=== PATIENT | female | born 1970 | race Caucasian/White ===

== ENCOUNTER → 2016-11-18 | Outpatient (CLI) | payer BC, OTHER | END | disposition home or self-care (01) | LOC: LABWHC1 09:48 | PROVIDERS: ATTEND Internal Medicine Endocrinology, Diabetes & Metabolism | DX: E04.2 Nontoxic multinodular goiter (principal) | CPT/HCPCS: 36415; 84439; 84443 ==

== ENCOUNTER → 2017-06-16 | Outpatient (CLI) | payer BC, OTHER ==
--- NOTE | 2017-06-19 11:55 | MM ---
Reason for exam: screening (asymptomatic). Last mammogram was performed 2 years and 9 months ago. History: Patient is postmenopausal and has history of other cancer at age 34. Family history of breast cancer in paternal grandmother. Physical Findings: A clinical breast exam by your physician is recommended on an annual basis and results should be correlated with mammographic findings. MG 3D Screening Mammo W/Cad Bilateral CC and MLO view(s) were taken. Prior study comparison: September 04, 2014, bilateral MG screening mammo w CAD. There are scattered fibroglandular densities. No suspicious abnormality. No significant changes when compared with prior studies. ASSESSMENT: Negative, BI-RAD 1 RECOMMENDATION: Routine screening mammogram of both breasts in 1 year.
== END | disposition home or self-care (01) ==
LOC: RADMAMWWP 15:13
PROVIDERS: ATTEND Family Medicine
DX: Z12.31 Encounter for screening mammogram for malignant neoplasm of breast (principal); Z80.3 Family history of malignant neoplasm of breast
CPT/HCPCS: 77063; 77067

== ENCOUNTER → 2017-09-04 | Outpatient (CLI) | payer BC, OTHER | END | disposition home or self-care (01) | LOC: LABWHC1 12:16 | PROVIDERS: ATTEND Nurse Practitioner Family | DX: C73 Malignant neoplasm of thyroid gland (principal) | CPT/HCPCS: 36415; 84443 ==

== ENCOUNTER → 2017-10-24 | Outpatient (CLI) | payer BC, OTHER | LOC: LABWHC1 16:35 | PROVIDERS: ATTEND Internal Medicine | DX: E03.9 Hypothyroidism, unspecified (principal) | CPT/HCPCS: 36415; 84443 ==

== ENCOUNTER → 2018-06-18 | Outpatient (CLI) | payer BC, OTHER | LOC: LABWHC1 16:30 | PROVIDERS: ATTEND Internal Medicine | DX: E20.9 Hypoparathyroidism, unspecified (principal) | CPT/HCPCS: 36415; 82310 ==

== ENCOUNTER → 2018-08-14 | Outpatient (CLI) | payer BC, OTHER ==
[2018-08-15 01:13] LABS: Vitamin D 25 Hydroxy 26.3 ng/mL (30.0-100.0)
[2018-08-15 01:26] LABS: Calcium 9.1 mg/dL (8.7-10.3)
[2018-08-15 01:59] LABS: Parathyroid Hormone Intact 6.8 pg/mL (14.0-72.0)
== END ==
LOC: LABWHC1 16:42
PROVIDERS: ATTEND Internal Medicine
DX: E89.2 Postprocedural hypoparathyroidism (principal); E89.0 Postprocedural hypothyroidism
CPT/HCPCS: 36415; 82306; 82310; 83970; 84443

== ENCOUNTER 2018-08-27 13:45 | Observation (INO) | payer BC, OTHER ==
[2018-08-27] MEDS ORDERED: MORPHINE SULFATE 2 MG/ML SYRINGE IVP STA (14:05)
[2018-08-27] MEDS ORDERED: SODIUM CHLORIDE 0.9% 500 ML 500 ML IV STA (14:05)
[2018-08-27] MEDS ORDERED: ASPIRIN 81 MG PO STA (14:05)
--- NOTE | 2018-08-27 14:12 | ED ---
General Adult HPI <AngelicaPernell - Last Filed: 08/27/18 16:21> - General Source: patient, RN notes reviewed Mode of arrival: ambulatory Limitations: no limitations <Dung Scott - Last Filed: 08/27/18 16:54> - General Chief complaint: Chest Pain Stated complaint: Chest pain Time Seen by Provider: 08/27/18 14:05 - History of Present Illness Initial comments: 48-year-old female with a past medical history of fibroids, UTI, melanoma presents to the emergency department for a chief complaint of chest pressure 3 days. Patient states she has a pressure in the center of her chest that has been intermittent over the past 3 days. Patient is not sure what makes this better or worse. She does admit that today he had some left shoulder achiness and pressure. Patient also admits to a fluttering or "gurgling" in her chest. She also admits to some nausea. She denies any abdominal pain. Patient states she has also been short of breath over the past several days. She states this is worse when she walks and better with rest. Patient denies any new back pain. Patient denies smoking history. Patient denies history of hypertension or high cholesterol. Denies history of diabetes. Patient has no other complaints at this time including abdominal pain,or vomiting, headache, or visual changes. (Dung Scott) - Related Data Home Medications Medication Instructions Recorded Confirmed Calcitriol 0.5 mcg PO BID 08/27/18 08/27/18 Calcium Carbonate [Calcium] 600 mg PO DAILY 08/27/18 08/27/18 Levothyroxine Sodium [Levoxyl] 112 mcg PO MOTUWETHFRSA 08/27/18 08/27/18 Levothyroxine Sodium [Levoxyl] 168 mcg PO SALGADO 08/27/18 08/27/18 Liothyronine Sodium [Cytomel] 5 mcg PO BID 08/27/18 08/27/18 Metaxalone [Skelaxin] 800 mg PO DAILY PRN 08/27/18 08/27/18 Zegrid 1 cap PO DAILY 08/27/18 08/27/18 Allergies Allergy/AdvReac Type Severity Reaction Status Date / Time Iodinated Contrast- Oral and Allergy Dyspnea Verified 08/27/18 14:19 IV Dye Penicillins Allergy Anaphylaxis Verified 08/27/18 14:19 Review of Systems ROS Other: All systems not noted in ROS Statement are negative. <Pernell Dominguez J - Last Filed: 08/27/18 16:21> ROS Other: All systems not noted in ROS Statement are negative. <SoniaDung P - Last Filed: 08/27/18 16:54> ROS Statement: Those systems with pertinent positive or pertinent negative responses have been documented in the HPI. Past Medical History Past Medical History: Cancer Additional Past Medical History / Comment(s): fibroids/mennorragia, uti, melanoma skin ca removed rt arm History of Any Multi-Drug Resistant Organisms: None Reported Past Surgical History: Adenoidectomy, Cholecystectomy, Hysterectomy, T onsillectomy Additional Past Surgical History / Comment(s): pt stated has 1 ovary left,sebaceous cyst lt labia, 3 d&c's, wisdom teeth extracted,melanoma, laparoscopy 1995, benign lump removed from leg, plantar fasia release inder feet, 3 eye sx for crossed eyes, thyroidectomy Past Anesthesia/Blood Transfusion Reactions: Motion Sickness, Postoperative Nausea & Vomiting (PONV) Additional Past Anesthesia/Blood Transfusion Reaction / Comment(s): clausterphobia Past Psychological History: No Psychological Hx Reported Smoking Status: Never smoker Past Alcohol Use History: None Reported Past Drug Use History: None Reported - Past Family History Mother Family Medical History: Osteoarthritis (OA) Father Family Medical History: Hypertension Additional Family Medical History / Comment(s): crohns, colitis <Dung Scott P - Last Filed: 08/27/18 16:54> General Exam Limitations: no limitations General appearance: alert, in no apparent distress Head exam: Present: atraumatic, normocephalic, normal inspection Eye exam: Present: normal appearance, PERRL, EOMI. Absent: scleral icterus, conjunctival injection, periorbital swelling ENT exam: Present: normal exam, mucous membranes moist Neck exam: Present: normal inspection, full ROM. Absent: tenderness, meningismus, lymphadenopathy Respiratory exam: Present: normal lung sounds bilaterally. Absent: respiratory distress, wheezes, rales, rhonchi, stridor Cardiovascular Exam: Present: regular rate, normal rhythm, normal heart sounds. Absent: systolic murmur, diastolic murmur, rubs, gallop, clicks GI/Abdominal exam: Present: soft, normal bowel sounds. Absent: distended, tenderness, guarding, rebound, rigid Extremities exam: Present: other Neurological exam: Present: alert, oriented X3, CN II-XII intact Psychiatric exam: Present: normal affect, normal mood Skin exam: Present: warm, dry, intact, normal color. Absent: rash <Dung Scott - Last Filed: 08/27/18 16:54> Course Vital Signs 08/27/18 08/27/18 08/27/18 13:51 15:00 15:30 Temperature 98.6 F Pulse Rate 100 85 68 Respiratory 18 18 18 Rate Blood Pressure 157/87 133/61 130/63 O2 Sat by Pulse 100 96 95 Oximetry 08/27/18 08/27/18 16:00 16:30 Temperature Pulse Rate 73 75 Respiratory 18 18 Rate Blood Pressure 120/68 117/64 O2 Sat by Pulse 96 95 Oximetry EKG Findings - EKG Comments: EKG Findings:: EKG NSR 90, NC 158, QRS 76, QTc 447 <Dung Scott - Last Filed: 08/27/18 16:54> Medical Decision Making - Lab Data Result diagrams: 08/27/18 14:50 08/27/18 14:50 <Pernell Dominguez - Last Filed: 08/27/18 16:21> - Lab Data Result diagrams: 08/27/18 14:50 08/27/18 14:50 <Dung Scott - Last Filed: 08/27/18 16:54> - Medical Decision Making The patient was seen and examined. All diagnostics are reviewed. It is felt as though she benefit from admission for further cardiac workup. She is agreeable. The case is discussed with the PA and I agree with the findings as documented. Case will be discussed with internal medicine shortly. (Pernell Dominguez) 48-year-old female with a past medical history of fibroids, UTI, melanoma and thyroid cancer treated in 2017 presents to the emergency department for a chief lien of chest pressure 3 days. She is not sure makes this better or worse. She also admits to left shoulder pain as well. Patient complains of a fluttering in her chest and shortness of breath worse on exertion. Patient had a negative stress test about 4 years ago. Denies any back pain. Patient does not have a cardiac history. CBC CMP unremarkable. Troponin less than 0.012. D-dimer 0.45, within normal limits. EKG does not show any evidence of ST elevation or depression. Patient was given aspirin and morphine, pain is better at this time. However given symptoms patient will be admitted for further cardiac workup. Patient is agreeable to this. (Dung Scott) - Lab Data Lab Results 08/27/18 08/27/18 08/27/18 Range/Units 14:50 14:50 14:50 WBC 5.1 (3.8-10.6) k/uL RBC 5.15 (3.80-5.40) m/uL Hgb 14.2 (11.4-16.0) gm/dL Hct 41.5 (34.0-46.0) % MCV 80.5 (80.0-100.0) fL MCH 27.5 (25.0-35.0) pg MCHC 34.1 (31.0-37.0) g/dL RDW 12.8 (11.5-15.5) % Plt Count 283 (150-450) k/uL Neutrophils % 61 % Lymphocytes % 29 % Monocytes % 5 % Eosinophils % 3 % Basophils % 1 % Neutrophils # 3.1 (1.3-7.7) k/uL Lymphocytes # 1.5 (1.0-4.8) k/uL Monocytes # 0.2 (0-1.0) k/uL Eosinophils # 0.2 (0-0.7) k/uL Basophils # 0.1 (0-0.2) k/uL PT 9.8 (9.0-12.0) sec INR 0.9 (<1.2) APTT 24.6 (22.0-30.0) sec D-Dimer 0.45 (<0.60) mg/L FEU Sodium 138 (137-145) mmol/L Potassium 3.7 (3.5-5.1) mmol/L Chloride 105 (98-107) mmol/L Carbon Dioxide 27 (22-30) mmol/L Anion Gap 6 mmol/L BUN 10 (7-17) mg/dL Creatinine 0.66 (0.52-1.04) mg/dL Est GFR (CKD-EPI)AfAm >90 (>60 ml/min/1.73 sqM) Est GFR (CKD-EPI)NonAf >90 (>60 ml/min/1.73 sqM) Glucose 89 (74-99) mg/dL Calcium 8.6 (8.4-10.2) mg/dL Magnesium 1.6 (1.6-2.3) mg/dL Total Bilirubin 0.5 (0.2-1.3) mg/dL AST 38 H (14-36) U/L ALT 42 (9-52) U/L Alkaline Phosphatase 60 (38-126) U/L Troponin I (0.000-0.034) ng/mL Total Protein 6.4 (6.3-8.2) g/dL Albumin 3.8 (3.5-5.0) g/dL Amylase 38 (30-110) U/L Lipase 86 (23-300) U/L 08/27/18 Range/Units 14:50 WBC (3.8-10.6) k/uL RBC (3.80-5.40) m/uL Hgb (11.4-16.0) gm/dL Hct (34.0-46.0) % MCV (80.0-100.0) fL MCH (25.0-35.0) pg MCHC (31.0-37.0) g/dL RDW (11.5-15.5) % Plt Count (150-450) k/uL Neutrophils % % Lymphocytes % % Monocytes % % Eosinophils % % Basophils % % Neutrophils # (1.3-7.7) k/uL Lymphocytes # (1.0-4.8) k/uL Monocytes # (0-1.0) k/uL Eosinophils # (0-0.7) k/uL Basophils # (0-0.2) k/uL PT (9.0-12.0) sec INR (<1.2) APTT (22.0-30.0) sec D-Dimer (<0.60) mg/L FEU Sodium (137-145) mmol/L Potassium (3.5-5.1) mmol/L Chloride (98-107) mmol/L Carbon Dioxide (22-30) mmol/L Anion Gap mmol/L BUN (7-17) mg/dL Creatinine (0.52-1.04) mg/dL Est GFR (CKD-EPI)AfAm (>60 ml/min/1.73 sqM) Est GFR (CKD-EPI)NonAf (>60 ml/min/1.73 sqM) Glucose (74-99) mg/dL Calcium (8.4-10.2) mg/dL Magnesium (1.6-2.3) mg/dL Total Bilirubin (0.2-1.3) mg/dL AST (14-36) U/L ALT (9-52) U/L Alkaline Phosphatase (38-126) U/L Troponin I <0.012 (0.000-0.034) ng/mL Total Protein (6.3-8.2) g/dL Albumin (3.5-5.0) g/dL Amylase (30-110) U/L Lipase (23-300) U/L Disposition <Pernell Dominguez - Last Filed: 08/27/18 16:21> Is patient prescribed a controlled substance at d/c from ED?: No Time of Disposition: 16:51 <Dung Scott - Last Filed: 08/27/18 16:54> Clinical Impression: Chest pain Disposition: ADMITTED IP TO THIS HOSP Condition: Fair Referrals: Milan Patrick MD [Primary Care Provider] - 1-2 days
[2018-08-27 15:03] LABS: Basophils # (A) 0.1 k/uL (0-0.2); Basophils % (A) 1 %; Eosinophils # (A) 0.2 k/uL (0-0.7); Eosinophils % (A) 3 %; HCT 41.5 % (34.0-46.0); HGB 14.2 gm/dL (11.4-16.0); Lymphocytes # (A) 1.5 k/uL (1.0-4.8); Lymphocytes % (A) 29 %; MCH 27.5 pg (25.0-35.0); MCHC 34.1 g/dL (31.0-37.0); MCV 80.5 fL (80.0-100.0); Mean Platelet Volume 7.3; Monocytes # (A) 0.2 k/uL (0-1.0); Monocytes % (A) 5 %; Neutrophils # (A) 3.1 k/uL (1.3-7.7); Neutrophils % (A) 61 %; Platelet Count 283 k/uL (150-450); RBC 5.15 m/uL (3.80-5.40); RDW 12.8 % (11.5-15.5); WBC 5.1 k/uL (3.8-10.6)
[2018-08-27 15:11] LABS: ALT 42 U/L (9-52); AST 38 U/L (14-36); Albumin 3.8 g/dL (3.5-5.0); Alkaline Phosphatase 60 U/L (38-126); Amylase 38 U/L (30-110); Anion Gap 6 mmol/L; Blood Urea Nitrogen 10 mg/dL (7-17); Calcium 8.6 mg/dL (8.4-10.2); Carbon Dioxide 27 mmol/L (22-30); Chloride 105 mmol/L (98-107); Glucose 89 mg/dL (74-99); Lipase 86 U/L (23-300); Magnesium 1.6 mg/dL (1.6-2.3); Potassium 3.7 mmol/L (3.5-5.1); Sodium 138 mmol/L (137-145); Total Bilirubin 0.5 mg/dL (0.2-1.3); Total Protein 6.4 g/dL (6.3-8.2)
[2018-08-27 15:23] LABS: D-Dimer 0.45 mg/L FEU (<0.60); INR 0.9 (<1.2); Partial Thromboplastin Time 24.6 sec (22.0-30.0); Prothrombin Time 9.8 sec (9.0-12.0)
--- NOTE | 2018-08-27 15:52 | XR ---
EXAMINATION TYPE: XR chest 2V DATE OF EXAM: 08/27/2018 COMPARISON: NONE HISTORY: Chest pain TECHNIQUE: Frontal and lateral views of the chest are obtained. FINDINGS: There is no focal air space opacity, pleural effusion, or pneumothorax seen. The cardiac silhouette size is within normal limits. The osseous structures are intact. IMPRESSION: No acute cardiopulmonary process.
[2018-08-27] MEDS ORDERED: MORPHINE SULFATE 2 MG/ML SYRINGE IVP PRN (16:50)
[2018-08-27 18:30] VITALS: BMI 46.2
[2018-08-27] MEDS ORDERED: CYCLOBENZAPRINE 10 MG TAB PO PRN (18:51)
[2018-08-27] MEDS ORDERED: ACETAMINOPHEN TAB 500 MG TAB PO PRN (18:52)
[2018-08-27] MEDS ORDERED: TEMAZEPAM 15 MG CAP PO PRN (18:52)
[2018-08-27] MEDS ORDERED: ALPRAZolam 0.25 MG TAB PO PRN (18:52)
[2018-08-27] MEDS ORDERED: HYDROcodone/APAP 5-325MG 1 EACH TAB PO PRN (18:52)
[2018-08-27] MEDS: NITROGLYCERIN OINT 1 INCH/GM PACKET TOPICAL SCH (19:55)
--- NOTE | 2018-08-27 20:37 | HP ---
HISTORY AND PHYSICAL DATE OF SERVICE: 08/27/2018 CHIEF COMPLAINT: Chest pain, shortness of breath. HISTORY OF PRESENT ILLNESS: This 48-year-old woman with a past medical history of multiple medical issues including history of chest pain, history of GERD, history pneumonia, history of cholecystectomy being followed by Dr. Patrick in the outpatient setting. The patient apparently having chest pressure over the last 3 days which is on and off, mainly seated in the left side in the anterior part of the chest. 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 The pain increased. Patient also had shortness of breath and the patient also felt some gurgling in the chest and the patient came to [facility] and admitted for further evaluation and treatment. Patient apparently also had a stress test about 4 years ago. This is not available at this time. There is no history of any fever, rigors or chills. No history of headache, loss of consciousness, seizures. PAST MEDICAL HISTORY: History of chest pain, history of GERD, hypertension, hypothyroidism, history of menorrhagia, cholecystectomy. MEDICATIONS: Prior to admission home medications are: 1. Zegerid 1 capsule p.o. daily. 2. Skelaxin 800 mg daily p.r.n. 3. Cytomel 5 mg p.o. b.i.d. 4. Levoxyl 112 mcg and 168 mcg. 5. Calcium 600 mg p.o. daily. 6. Calcitriol 0.5 b.i.d. ALLERGIES: IODINATED CONTRAST AND PENICILLIN. FAMILY HISTORY: History of cancer in grandmother. SOCIAL HISTORY: Occasional alcohol intake. No history of smoking. REVIEW OF SYSTEMS: ENT: No diminished vision or hearing. CARDIOVASCULAR SYSTEM: As mentioned earlier. RESPIRATORY: As mentioned earlier. GI: No nausea. : No dysuria. NERVOUS SYSTEM: No numbness or weakness. ALLERGY/IMMUNOLOGY: No asthma. MUSCULOSKELETAL: As mentioned earlier. HEMATOLOGY/ONCOLOGY: No history of anemia. ENDOCRINE: Hypothyroidism. CONSTITUTIONAL: As mentioned. PSYCH: As mentioned earlier. PHYSICAL EXAMINATION: Alert and oriented x3. Pulse 65, blood pressure 159/70, respiration 18, temperature 98.2, pulse ox 98% on room air. HEENT: Conjunctivae normal. Oral mucosa moist. NECK: No jugular venous distention. No lymph node enlargement. CARDIOVASCULAR: S1, S2. RESPIRATORY: Diminished breath sounds at the bases. A few scattered rhonchi, no crackles. ABDOMEN: Soft, obese, nontender. No mass palpable. LEGS: No swelling. NERVOUS SYSTEM: Higher functions as mentioned earlier. Moves all 4 limbs. No focal motor deficits. LYMPHATICS: No lymph node palpable in the neck or axillae. SKIN: No rash. JOINTS: No active swelling. LABS: CBC BMP noted. Troponins are negative. AST 38. Otherwise the chest x-ray which was reviewed by me showed no acute abnormality and EKG shows normal sinus rhythm and no other acute changes. ASSESSMENT: 1. Chest pain, possible unstable angina. 2. Shortness of breath for evaluation. 3. History of gastroesophageal reflux disease. 4. History of pneumonia. 5. History of fibroids. 6. History of hypothyroidism and thyroid cancer. 7. History of cholecystectomy. RECOMMENDATIONS AND DISCUSSION: In this 48-year-old woman who presented with multiple complex medical issues, will monitor the patient closely, continue current management, continue symptomatic treatment, rule out myocardial infarction, resume the home medications, cardiology consultation, possible stress test. Guarded prognosis because of multiple complex issues. Further recommendations to follow. MMODL / IJN: [id number] / MTDD
[2018-08-27] MEDS: CALCITRIOL 0.25 MCG CAP PO SCH (20:42)
[2018-08-27] MEDS: LIOTHYRONINE SODIUM 5 MCG TAB PO SCH (20:42)
[2018-08-28] MEDS: NITROGLYCERIN OINT 1 INCH/GM PACKET TOPICAL SCH ×3 (00:30→14:08)
[2018-08-28 02:47] LABS: Basophils # (A) 0.1 k/uL (0-0.2); Basophils % (A) 1 %; Eosinophils # (A) 0.2 k/uL (0-0.7); Eosinophils % (A) 4 %; HCT 39.9 % (34.0-46.0); HGB 13.1 gm/dL (11.4-16.0); Lymphocytes # (A) 1.8 k/uL (1.0-4.8); Lymphocytes % (A) 40 %; MCHC 32.9 g/dL (31.0-37.0); MCV 81.9 fL (80.0-100.0); Mean Platelet Volume 7.6; Monocytes # (A) 0.2 k/uL (0-1.0); Monocytes % (A) 5 %; Neutrophils # (A) 2.1 k/uL (1.3-7.7); Neutrophils % (A) 47 %; Platelet Count 268 k/uL (150-450); RBC 4.87 m/uL (3.80-5.40); RDW 13.1 % (11.5-15.5); WBC 4.5 k/uL (3.8-10.6)
[2018-08-28 02:56] LABS: Anion Gap 6 mmol/L; Blood Urea Nitrogen 11 mg/dL (7-17); Calcium 8.7 mg/dL (8.4-10.2); Carbon Dioxide 25 mmol/L (22-30); Chloride 107 mmol/L (98-107); Cholesterol 139 mg/dL (<200); Glucose 94 mg/dL (74-99); HDL Cholesterol 49 mg/dL (40-60); LDL Cholesterol,Calculated 70 mg/dL (0-99); Potassium 4.1 mmol/L (3.5-5.1); Sodium 138 mmol/L (137-145); Triglycerides 100 mg/dL (<150)
[2018-08-28] MEDS ORDERED: LEVOTHYROXINE 112 MCG TAB PO SCH (06:30)
[2018-08-28] MEDS ORDERED: PANTOPRAZOLE 40 MG TABLET PO SCH (07:30)
[2018-08-28 07:54] VITALS: PULSE 73; RESP 18
[2018-08-28] MEDS ORDERED: ASPIRIN 325 MG TAB PO SCH (09:00)
[2018-08-28] MEDS ORDERED: ZEGRID PO SCH (09:00)
[2018-08-28] MEDS ORDERED: CALCIUM CARBONATE 500 MG CHEWABLE PO SCH (09:00)
[2018-08-28 11:35] VITALS: BP 122/71; TEMP 98.2
[2018-08-28] MEDS: LIOTHYRONINE SODIUM 5 MCG TAB PO SCH (14:08)
[2018-08-28] MEDS: CALCITRIOL 0.25 MCG CAP PO SCH (14:08)
--- NOTE | 2018-08-28 15:34 | CONS ---
CONSULTATION Mrs Rosales is a 48-year-old female who is seen for cardiac evaluation. This patient has a history of fibroid, UTI and melanoma. Patient has been having intermittent chest discomfort for the last 3 days. According to her, patient feels that there is a pressure in the chest as well as sometimes there is some radiation of the pain to the left side. The pains are not related to exertion. It comes and goes. Patient denies any history of high blood pressure, diabetes, or high cholesterol. There is no previous history of myocardial infarction. HOME MEDICATIONS: Include calcitriol, Levoxyl, Cytomel, and Skelaxin. PAST MEDICAL HISTORY: Includes history of cholecystectomy, hysterectomy and tonsillectomy. PHYSICAL EXAMINATION: At present reveals a 48-year-old female who does not appear to be in any acute distress. Patient's vital signs were stable in the emergency room. Blood pressure is 122/71 mmHg, heart rate is 73 per minute, oxygen saturation is normal. HEENT examination is negative. Neck is supple. There is no increase in jugular venous pressure. Both the carotid pulses are felt, there is no bruit. Chest is symmetrical. Heart, the PMI is not felt. First and second heart sounds are normal. There is no evidence of any murmur. Lungs are clinically clear to auscultation and percussion. Abdomen is soft. Liver and spleen are not enlarged. Bowel sounds are heard. EXTREMITIES: Peripheral pulsations are 2+. EKG shows a normal sinus rhythm without any evidence of acute ischemic changes. The patient's cardiac enzymes are normal. FINAL IMPRESSION: This patient's history suggestive of atypical angina. Patient does not have any clinical risk factors. A stress test, EKG's and cardiac enzymes are normal. RECOMMENDATIONS: Will proceed with a stress test and echocardiogram. If the stress test is negative for stress-induced ischemia, patient can be discharged home. MMODL / IJN: [id number] /
--- NOTE | 2018-08-28 15:39 | P.DS ---
Providers Date of admission: 08/27/18 16:22 Expected date of discharge: 08/28/18 Attending physician: Da Berman Consults: 08/27/18 16:48 Consult Physician Urgent Consulting Provider: Timothy Liriano Consult Reason/Comments: chest pressure, SOB Do you want consulting provider notified?: Yes Primary care physician: Milan Patrick Hospital Course: Final Diagnoses: -Chest pain, possible unstable angina, possible muscloskeletal in a patient with history of chronic back pain -Gastroesophageal reflux disease -Hypothyroidism with history of thyroid cancer Hospital course: This is a 48-year-old female admitted with acute chest pain, reported as midsternal to midepigastric, radiating around bilateral sides to back, accompanied by shortness of breath. Denies shortness of breath, maintaining O2 sats of the high 90s on room air, respiratory rate normal. Currently denies chest pain.Evaluated by cardiology. Underwent stress test. Verbal report per RN from Dr. Callahan, cardiology, reporting negative stress test. Patient will be discharged home in a stable condition pending clearance/final DC recommendations from cardiology. PHYSICAL EXAM: GENERAL: Alert and oriented 3, no acute distress CARDIOVASCULAR: S1, S2 muffled. No murmur RESPIRATION: Breath sounds diminished in the bases. No rhonchi or crackles. No bronchial breathing. ABDOMEN: Soft, nontender . No guarding. no masses palpable.Bowel sounds heard. LEGS: No edema. no swelling NERVOUS SYSTEM: No focal deficits. The impression and plan of care has been dictated as directed. : I performed a history and examination of this patient, discussed the same with the dictator. I agree with the dictator's note ,documented as a scribe. Any additional findings or plans will be noted. Time taken: 35 minutes Patient Condition at Discharge: Stable Plan - Discharge Summary Discharge Rx Participant: Yes New Discharge Prescriptions: New Pantoprazole [Protonix] 40 mg PO AC-BRKFST #30 tablet. Continue Metaxalone [Skelaxin] 800 mg PO DAILY PRN PRN Reason: Muscle Spasm Calcium Carbonate [Calcium] 600 mg PO DAILY Calcitriol 0.5 mcg PO BID Liothyronine Sodium [Cytomel] 5 mcg PO BID Levothyroxine Sodium [Levoxyl] 168 mcg PO SALGADO Levothyroxine Sodium [Levoxyl] 112 mcg PO MOTUWETHFRSA Zegrid 1 cap PO DAILY Discharge Medication List Calcitriol 0.5 mcg PO BID 08/27/18 [History] Calcium Carbonate [Calcium] 600 mg PO DAILY 08/27/18 [History] Levothyroxine Sodium [Levoxyl] 112 mcg PO MOTUWETHFRSA 08/27/18 [History] Levothyroxine Sodium [Levoxyl] 168 mcg PO SALGADO 08/27/18 [History] Liothyronine Sodium [Cytomel] 5 mcg PO BID 08/27/18 [History] Metaxalone [Skelaxin] 800 mg PO DAILY PRN 08/27/18 [History] Zegrid 1 cap PO DAILY 08/27/18 [History] Pantoprazole [Protonix] 40 mg PO HIGINIO #30 tablet. 08/28/18 [Rx] Follow up Appointment(s)/Referral(s): Milan Patrick MD [Primary Care Provider] - 3 Days Activity/Diet/Wound Care/Special Instructions: Confirm cardiology clearance, final DC recommendations and follow-up appointment Diet: Cardiac Activity: Limited until follow up
--- NOTE | 2018-08-29 12:06 | ECHOF ---
Referral Reason:chest pain MEASUREMENTS -------- HEIGHT: 170.2 cm WEIGHT: 133.8 kg BP: 108/80 RVIDd: 3.5 cm (< 3.3) IVSd: 1.0 cm (0.6 - 1.1) LVIDd: 4.3 cm (3.9 - 5.3) LVPWd: 1.2 cm (0.6 - 1.1) IVSs: 1.7 cm LVIDs: 3.0 cm LVPWs: 1.7 cm LA Diam: 3.3 cm (2.7 - 3.8) LAESV Index (A-L): 17.63 ml/m Ao Diam: 3.2 cm (2.0 - 3.7) AV Cusp: 2.2 cm (1.5 - 2.6) MV EXCURSION: 13.189 mm (> 18.000) MV EF SLOPE: 78 mm/s (70 - 150) EPSS: 0.7 cm MV E Kirill: 0.81 m/s MV DecT: 161 ms MV A Kirill: 0.85 m/s MV E/A Ratio: 0.95 RAP: 5.00 mmHg RVSP: 24.48 mmHg FINDINGS -------- Sinus rhythm. This was a technically adequate study. The left ventricular size is normal. There is borderline concentric left ventricular hypertrophy. Overall left ventricular systolic function is normal with, an EF between 60 - 65 %. The right ventricle is mildly enlarged. Normal LA size by volume 22+/-6 ml/m2. The right atrium is normal in size. The aortic valve is trileaflet and appears structurally normal. The mitral valve is normal. Mild tricuspid regurgitation present. Right ventricular systolic pressure is normal at < 35 mmHg. Trace/mild (physiologic) pulmonic regurgitation. The aortic root size is normal. Normal inferior vena cava with normal inspiratory collapse consistent with estimated right atrial pre ssure of 5 mmHg. There is no pericardial effusion. CONCLUSIONS -------- 1. Sinus rhythm. 2. This was a technically adequate study. 3. The left ventricular size is normal. 4. There is borderline concentric left ventricular hypertrophy. 5. Overall left ventricular systolic function is normal with, an EF between 60 - 65 %. 6. The right ventricle is mildly enlarged. 7. Normal LA size by volume 22+/-6 ml/m2. 8. The right atrium is normal in size. 9. The aortic valve is trileaflet and appears structurally normal. 10. The mitral valve is normal. 11. Mild tricuspid regurgitation present. 12. Right ventricular systolic pressure is normal at < 35 mmHg. 13. Trace/mild (physiologic) pulmonic regurgitation. 14. The aortic root size is normal. 15. Normal inferior vena cava with normal inspiratory collapse consistent with estimated right atrial pressure of 5 mmHg. 16. There is no pericardial effusion. EQUIPMENT OPERATOR/LABORER: Vicenta Brownlee RDCS
[2018-09-02] MEDS ORDERED: LEVOTHYROXINE 112 MCG TAB PO SCH (06:30)
== END 2018-08-28 16:30 | disposition home or self-care (01) ==
LOC: EC 13:45 → 1SOBS 16:22
PROVIDERS: ADMIT Hospitalist; ATTEND Hospitalist
DX: R07.89 Other chest pain (principal); R06.02 Shortness of breath; R11.0 Nausea; M25.512 Pain in left shoulder; I49.8 Other specified cardiac arrhythmias; K21.9 Gastro-esophageal reflux disease without esophagitis; I10 Essential (primary) hypertension; E89.0 Postprocedural hypothyroidism; M54.9 Dorsalgia, unspecified; G89.29 Other chronic pain; Z87.440 Personal history of urinary (tract) infections; Z85.820 Personal history of malignant melanoma of skin; Z87.01 Personal history of pneumonia (recurrent); Z85.850 Personal history of malignant neoplasm of thyroid; E66.9 Obesity, unspecified; Z68.42 Body mass index [BMI] 45.0-49.9, adult; Z79.890 Hormone replacement therapy; Z79.899 Other long term (current) drug therapy; Z88.0 Allergy status to penicillin; Z91.041 Radiographic dye allergy status; Z90.49 Acquired absence of other specified parts of digestive tract; Z90.710 Acquired absence of both cervix and uterus; Z82.49 Family history of ischemic heart disease and other diseases of the circulatory system; Z82.61 Family history of arthritis; Z83.79 Family history of other diseases of the digestive system; Z80.9 Family history of malignant neoplasm, unspecified
CPT/HCPCS: 96374; 99285; 36415; 93005; 93306; 93351; 85379; 80061; 80053; 80048; 82150; 83690; 83735; 84484 ×2; 85025 ×2; 85610; 85730; 71046; G0378 ×2; J2270

== ENCOUNTER → 2021-04-21 | Outpatient (CLI) | payer BC, OTHER ==
[2021-04-21 12:58] LABS: ALT 23 U/L (8-44); AST 19 U/L (13-35); African American GFR (CKD) 103.5 (60.0-200.0); Albumin 4.1 g/dL (3.8-4.9); Albumin/Globulin Ratio 1.97 (1.60-3.17); Alkaline Phosphatase 74 U/L (41-126); BUN/Creat Ratio 13.62 Ratio (12.00-20.00); Bilirubin, Conjugated <0.20 mg/dL (0.20-0.40); Blood Urea Nitrogen 10.5 mg/dL (9.0-27.0); Calcium 8.7 mg/dL (8.7-10.3); Carbon Dioxide 22.5 mmol/L (21.6-31.8); Chloride 104 mmol/L (96-109); Chol/HDL Ratio 3.05 Ratio; Globulin 2.1 g/dL (1.6-3.3); Glucose 101 mg/dL (70-110); LDL Cholesterol,Calculated 118.5 mg/dL (0.0-131.0); Non-African American GFR(CKD) 89.3 (60.0-200.0); Potassium 4.3 mmol/L (3.5-5.5); Sodium 139 mmol/L (135-145); Total Protein 6.2 g/dL (6.2-8.2); VLDL Calculation 13.16 mg/dL (5.00-40.00)
== END | disposition home or self-care (01) ==
LOC: LABWHC1 07:10
PROVIDERS: ATTEND Internal Medicine
DX: C73 Malignant neoplasm of thyroid gland (principal); K76.0 Fatty (change of) liver, not elsewhere classified; R73.03 Prediabetes; E03.9 Hypothyroidism, unspecified
CPT/HCPCS: 36415; 80048; 80061; 80076; 83036; 84443

== ENCOUNTER → 2021-09-01 | Outpatient (CLI) | payer BC, OTHER ==
--- NOTE | 2021-09-02 04:07 | MR ---
EXAMINATION TYPE: MR lumbar spine wo con DATE OF EXAM: 09/01/2021 COMPARISON: None HISTORY: Low back pain into rt side buttocks/thigh Multiplanar multiecho imaging of the lumbar spine without contrast. Lumbar vertebrae are normal alignment. Posterior elements are intact. There is no compression fractur e. Disc spaces are fairly normal. Sacroiliac joints are intact. There is no lumbar paraspinal mass. T here is no spinal stenosis. The lumbar neural foramina appear widely patent. IMPRESSION: MR scan of the lumbar spine appears normal for age. No lumbar disc herniation or spinal stenosis. No fracture.
== END | disposition home or self-care (01) ==
LOC: RADMRIMAIN 12:44
PROVIDERS: ATTEND Orthopaedic Surgery
DX: M54.50 Low back pain, unspecified (principal)
CPT/HCPCS: 72148

== ENCOUNTER 2021-09-09 06:21 | Day surgery (SDC) | payer BC, OTHER ==
[2021-09-07 14:10] VITALS: BMI 44.6
[2021-09-09 06:42] VITALS: BP 146/72; PULSE 75; RESP 18; TEMP 97.6
--- NOTE | 2021-09-09 07:01 | P.PN ---
Progress Note - Text Progress Note Date: 09/09/21 Itzel was seen in the preoperative in preparation for a lumbar epidural steroid injection, she reports pain in her low back that radiates down her legs and into her left groin. she reports that she's had injections in the past and have offered her benefit. She wanted me to review her MRI. On today's visit she reports that she has pain usually after walking for about one or 2 blocks. She describes that her left leg becomes heavy at times. She reports pain that radiates into her left groin and down to the back of the knee. She reports that her right side sometimes goes numb if she lays on her back for too long. She denies any bowel or bladder incontinence. I reviewed the MRI that was done a couple days ago, the MRI images showed no significant narrowing in the lumbar spine there is mild facet degeneration at a couple levels in the L4 5 and L5-S1. spinal canal appears patent. there does not appear to be any nerve root irritation or any impingement in the neural foramina. General: Awake and alert oriented 3 no distress Respiratory exam: No audible wheezing no accessory muscle usage Cardiovascular exam: regular rate, palpable bilateral pulses, no lower extremity edema Abdominal exam: No distention nontender to palpation Cervical spine: Normal alignment, Spurling's negative, facet loading negative, Director Of Market Intelligence strength is 5/5, meléndez negative Lumbar spine: Loss of lumbar lordosis, normal alignment, tender to palpation over bilateral paraspinal muscles, facet loading is positive bilaterally. Straight leg raise is negative. Limited range of motion due to pain with flexion, extension and side bending. Sacroiliac joints: Nontender to palpation, NANCY is negative, Gaenselon negative Neuro exam: Normal sensation in bilateral upper extremities, deep tendon reflexes are 2+ bilateral upper extremities. Normal sensation in bilateral lower extremities. Deep tendon reflexes are 2+ in lower extremities Psych exam: Cooperative, appropriate mood PLAN: after discussion with the patient review of the records, I do not believe that the epidural would be of much benefit at this time. I've given her prescription to have a nerve conduction study and EMG and a follow-up with Dr. Gonzalez, If he still believes an epidural steroid injection is the right thing for her she will reschedule the epidural at another date. No medications were prescribed today.
== END 2021-09-09 06:56 | disposition home or self-care (01) ==
LOC: ORPAIN 06:21
PROVIDERS: ATTEND Hospitalist
DX: M47.816 Spondylosis without myelopathy or radiculopathy, lumbar region (principal); M43.16 Spondylolisthesis, lumbar region; Z53.8 Procedure and treatment not carried out for other reasons

== ENCOUNTER → 2023-02-09 | Outpatient (CLI) | payer BC | END | disposition home or self-care (01) | LOC: LABWHC1 10:52 | DX: C73 Malignant neoplasm of thyroid gland (principal) | CPT/HCPCS: 36415; 84432; 86800 ==

== ENCOUNTER → 2024-07-16 | Outpatient (CLI) | payer BC ==
[2024-07-16 08:05] VITALS: BP 118/76; PULSE 76; RESP 16; TEMP 97.1
--- NOTE | 2024-07-16 15:51 | P.PAINPG ---
PQRS Measure Charge Sheet Comment: HISTORY OF PRESENT ILLNESS: A 54 yr old female as a referral from Dr Fields presents today w severe and chronic LBP > 3 mo secondary to radiculopathy, spondylosis and facet arthropathy without myelopathy, BL Sacroiliitis for evaluation. Pt states pain level is provoked at 7 /10 in intensity, constant, localized in the lumbar spine, predominantly axial, burning in character w occasional shooting pain towards the buttock, hips and groin. Pain is provoked by laying on the L side. Pain is alleviated by PT x 6 wks which ended in 2020, massage therapy monthly x 1 yr w last visit in Jan 2024, chiropractic treatments semi monthly x 1 yr w last visit in Nov 2023, physician guided home exercises 4-5 times weekly since Nov 2023, heat, ice, medications, topical, repositioning and rest . Oswestry axial pain score at 26. PMH: OA, Hypothyroidism, GERD, Vitamin D Deficiency, Melanoma, Claustrophobia PSH: Melanoma Resection, Adenoidectomy, Cholecystectomy, Laparoscopy (1995), Hysterectomy (2014), D&C x3, Tonsillectomy, Thyroidectomy, Colonoscopy (2020) SH: Negative x3 FH: Mo- OA. Fa- CAD, Crohn's. All: See list Meds: See list incl Baclofen, ASA, Lidoderm REVIEW OF ORGAN SYSTEMS: CONSTITUTIONAL: No fevers or chills. No recent weight loss. NEUROLOGICAL: + numbness and tingling along the distal extremities. No seizure disorders or headaches. MUSCULOSKELETAL: + pain PSYCHIATRIC: Denies current depression or suicidal thoughts. Physical Examinations : Constitutional : Cooperative , not in acute distress . Neurologic : Cranial nerve II to XII intact. No focal neurological deficits. Psychiatric : alert & oriented x 3. Matching mood & appropriate affect. Judgment & insight intact. Musculoskeletal : Cervical Spine Motor strength in the deltoid and biceps: Normal right side. Normal Left side Motor strength biceps and the wrist extensors: Normal right side . Normal left side Motor strength in the triceps muscle: Normal right side. Normal left side Deep tendon reflexes: Normal at the biceps. Normal at Brachioradialis. Normal at triceps Vertebral body tenderness to deep palpation over Cervical facet loading test: positive bilaterally Spurling test: positive bilaterally Neck distraction test: positive bilaterally Sarah sign: positive bilaterally Lumbar spine Motor strength lower extremities ,thigh and legs 5/5 Right side , 5/5 Left side Deep tendon reflexes : Normal Knee Jerk. Normal Ankle Jerk Vertebral body tenderness over Han Test positive Lumbar facet Loading Test: positive Right / positive Left Range of motion of the lumbar spine Flexion 30 degrees, extension 10 degrees Straight Leg Raise test: Left/ Right positive at degrees Maximino test: positive right / positive left. Severe tenderness over the Sacroiliac joint on the Right / Left sides Gaenslen test: positive bilaterally Seated flexion test: positive bilaterally. Sacral spine : Severe tenderness over the Sacroiliac joint: right side / left side Range of motion: Flexion of the lumbar spine <60 degrees Range of motion: Extension of the lumbar spine <20 degrees Gaenslen's Test positive BL Maximino test: positive right side / left side Thigh Thrust Test Sacral Thrust Test L> R positive Imaging: MRI non contrast lumbar spine from 06/14/24 reviewed Assessment/ Plan : L4-S1 radiculopathy, BL Sacroiliitis Recommendation of BL SI injection #1. Risks, benefits of procedure discussed and patient verbalized understanding. Admits to anti- coagulant use or medical history of diabetes. Protocol for discontinuation/ continuation of medications michelle procedure discussed. All questions answered. I have spent greater than 30 minutes on patient care today. Dr Wynne was available by phone for the evaluation of this patient. The time was used to review the medical records including relevant urine studies and Prescription history (MAPs), review of the available imaging, evaluation and examination of the patient, coordination of care with the medical staff and if applicable referring physicians, as well as creation of the medical record PQRS Narrative: Smoking Status Never smoker Home Medications: Ambulatory Orders Levothyroxine Sodium [Levoxyl] 125 mcg PO DAILY 08/27/18 Liothyronine Sodium [Cytomel] 5 mcg PO BID 08/27/18 Zegrid 1 cap PO DAILY 08/27/18 calcitrioL 0.5 mcg PO BID 08/27/18 Calcium Citrate/Vitamin D3 [Citracal + D Maximum Caplet] 6 each PO DAILY Aspirin [Aspirin EC] 500 mg PO DAILY 07/16/24 Baclofen 10 mg PO DAILY PRN 07/16/24 Famotidine [Pepcid] 20 mg PO HS 07/16/24 Lidocaine 5% Patch [Lidoderm] 1 patch TOPICAL DAILY 07/16/24 Omeprazole [PriLOSEC] 20 mg PO AC-BID 07/16/24 Controlled Substance Measures - Controlled Substance Measures Is patient prescribed a controlled substance at discharge?: No
== END ==
LOC: PNWHC3 07:18
PROVIDERS: ATTEND Specialist
DX: M54.17 Radiculopathy, lumbosacral region (principal); M46.1 Sacroiliitis, not elsewhere classified; Z91.041 Radiographic dye allergy status; Z88.0 Allergy status to penicillin
CPT/HCPCS: 99211

== ENCOUNTER 2024-08-09 06:21 | Day surgery (SDC) | payer BC ==
[2024-08-09] MEDS ORDERED: LACTATED RINGERS 1,000 ML IV SCH (06:31)
[2024-08-09 06:55] VITALS: RESP 16; TEMP 97.7
[2024-08-09] MEDS: diazePAM 5 MG TAB PO STA (07:07)
[2024-08-09] MEDS ORDERED: methylPREDNISolone ACETATE 80 MG/ML 1 ML VIAL ONE (08:02)
[2024-08-09] MEDS ORDERED: ROPIVACAINE 5MG/ML 20ML VIAL ONE (08:02)
--- NOTE | 2024-08-09 08:15 | P.PCN ---
Date of Procedure: 08/09/24 Procedure(s) Performed: Procedure= bilateral sacroiliac joints steroid injection under fluoroscopy guidance (fluoroscopy image stored on file in the radiology Department ) Preoperative diagnosis= 1-sacroiliitis. Postoperative diagnosis=Same as preop Diagnosis . Complication = none Condition= stable Anesthesia= local anesthesia with ropivacaine 0.5% 4 ml only Indication for the procedure= patient complaining of low back pain , examination was positive for severe tenderness over the sacroiliac joints bilaterally and patient diagnosed with sacroiliitis, for this reason she was good candidate for sacroiliac joint steroid injection. Description of the procedure= procedure risk and benefits discussed with the patient, including but not limited, risk of infection and bleeding, and ALLERGIC reaction to the medication and not complete pain relief and patient agreed with the preceding patient taken to the operating room, placed in prone position or standard monitors applied to the patient then after induction of anesthesia back prepped with chlorhexidine 3 times , Then under strict sterile technique, first I did the right sacroiliac joint the which was identified under fluoroscopy guidance been local infiltration of the skin and subcu interstitial with lidocaine 1% then 23-gauge Quincke Needle advanced slowly under fluoroscopy and placed in the right sacroiliac joint needle placement confirmed with AP and oblique and lateral view, and after appropriate needle placement confirmed and after negative aspiration, or heme , then Ropivacaine 0.5% 2 mL, and 40 mg of Depo-Medrol mixed together and injected in the right sacroiliac joint after negative aspiration patient tolerated the procedure well without any complication. Then the left sacroiliac joint steroid injection done under strict sterile technique local infiltration of the skin and subcu interstitial at the location of the left sacroiliac joint then a 22-gauge Quincke Needle advanced slowly under fluoroscopy time placed in the left sacroiliac joint, needle placement confirmed with AP and oblique and lateral view then after appropriate needle placement confirmed, with the AP and oblique and lateral view, and after negative aspiration 0.5% Ropivacaine 2 mL and 40 mg of Depo-Medrol injected in the left sacroiliac joint after negative aspiration patient tolerated the procedure well that any complications and she will follow up in clinic 3 weeks. note= Isovue was not injected because patient had allergy to iodinated contrast media.
[2024-08-09 08:44] VITALS: BP 107/58; PULSE 79
--- NOTE | 2024-08-09 09:58 | FL ---
EXAMINATION TYPE: FL guided pain mgmt statistic DATE OF EXAM: 08/09/2024 CLINICAL INDICATION: Female, 54 years old with history of PAIN; [facility], TECHNIQUE: Fluoroscopy. COMPARISON: None. FINDINGS: Fluoroscopic guidance was provided during pain relief procedure performed by Dr. Wynne . A total of 8.3 seconds of fluoroscopic time was utilized during the procedure and two spot images are acquired. Images acquired shows needle localization at the bilateral sacroiliac joints. Total DAP: 0.26006 mGym2. IMPRESSION: As Above. [facility], , 08/09/2024 9:56 AM
== END 2024-08-09 08:51 | disposition home or self-care (01) ==
LOC: ORPAIN 06:21
PROVIDERS: ATTEND Specialist
DX: M46.1 Sacroiliitis, not elsewhere classified (principal); Z91.041 Radiographic dye allergy status; Z88.0 Allergy status to penicillin
CPT/HCPCS: 27096; J2795; J1010

== ENCOUNTER → 2024-08-28 | Outpatient (CLI) | payer BC ==
[2024-08-28 08:05] VITALS: BP 112/64; PULSE 81; RESP 15; TEMP 97.8
--- NOTE | 2024-08-28 08:53 | XR ---
EXAMINATION TYPE: XR Hip Complete LT DATE OF EXAM: 08/28/2024 8:43 AM COMPARISON: None CLINICAL INDICATION: Female, 54 years old with history of M16.10 UNILATERAL PRIMARY OSTEOARTHRITIS, U N; PHH, pain TECHNIQUE: XR Hip Complete LT; Frontal and lateral views FINDINGS: No evidence for acute process, joint dislocation or significant soft tissue swelling. Osteo phyte formation of the superior acetabulum of the hip. There is moderate to severe joint space narrow ing. IMPRESSION: 1. No evidence for acute process. 2. Moderate to severe left hip osteoarthrosis. [facility], , 08/28/2024 8:51 AM
--- NOTE | 2024-08-28 15:46 | P.PAINPG ---
PQRS Measure Charge Sheet Comment: HISTORY OF PRESENT ILLNESS: A 54 yr old female presents today w severe and chronic LBP > 3 mo secondary to radiculopathy, spondylosis and facet arthropathy without myelopathy, BL Sacroiliitis, L hip DJD for evaluation s/p BL SI injection #1. Pt states she experienced 75% pain relief x 3 wks s/p procedure. Pt states pain level is provoked at 4-6 /10 in intensity, constant, localized in the L hip, achy in character w occasional shooting pain towards the buttock and hip. Pain is provoked by laying on the L side and LLE abduction. Pain is alleviated by PT x 6 wks (lumbar, hips) which ended in 2020, massage therapy monthly x 1 yr w last visit in Jan 2024, chiropractic treatments semi monthly x 1 yr w last visit in Nov 2023, physician guided home exercises 4-5 times weekly (lumbar, hips) since Nov 2023, heat, ice, medications, topical, repositioning and rest . Interventional procedures include BL SI x1 (08/09/24), L Hip Bursa x1 (2020) Medications include Lidocaine REVIEW OF ORGAN SYSTEMS: CONSTITUTIONAL: No fevers or chills. No recent weight loss. NEUROLOGICAL: + numbness and tingling along the distal extremities. No seizure disorders or headaches. MUSCULOSKELETAL: + pain PSYCHIATRIC: Denies current depression or suicidal thoughts. Physical Examinations : Constitutional : Cooperative , not in acute distress . Neurologic : Cranial nerve II to XII intact. No focal neurological deficits. Psychiatric : alert & oriented x 3. Matching mood & appropriate affect. Judgment & insight intact. Musculoskeletal : Cervical Spine Motor strength in the deltoid and biceps: Normal right side. Normal Left side Motor strength biceps and the wrist extensors: Normal right side . Normal left side Motor strength in the triceps muscle: Normal right side. Normal left side Deep tendon reflexes: Normal at the biceps. Normal at Brachioradialis. Normal at triceps Vertebral body tenderness to deep palpation over Cervical facet loading test: positive bilaterally Spurling test: positive bilaterally Neck distraction test: positive bilaterally Sarah sign: positive bilaterally Lumbar spine Motor strength lower extremities ,thigh and legs 5/5 Right side , 5/5 Left side Deep tendon reflexes : Normal Knee Jerk. Normal Ankle Jerk Vertebral body tenderness over Han Test positive Lumbar facet Loading Test: positive Right / positive Left Range of motion of the lumbar spine Flexion 30 degrees, extension 10 degrees Straight Leg Raise test: Left/ Right positive at degrees Maximino test: positive right / positive left. Severe tenderness over the Sacroiliac joint on the Right / Left sides Gaenslen test: positive bilaterally Seated flexion test: positive bilaterally. Sacral spine : +L Trendelenburg Severe tenderness over the Sacroiliac joint: right side / left side Range of motion: Flexion of the lumbar spine <60 degrees Range of motion: Extension of the lumbar spine <20 degrees Gaenslen's Test positive L Maximino test: positive right side / left side Thigh Thrust Test Sacral Thrust Test L> R positive Imaging: MRI non contrast lumbar spine from 06/14/24 reviewed Assessment/ Plan : L4-S1 radiculopathy, BL Sacroiliitis, L Hip DJD Recommendation of L hip x ray M16.10. All questions answered. I have spent greater than 30 minutes on patient care today. Dr Wynne was available by phone for the evaluation of this patient. The time was used to review the medical records including relevant urine studies and Prescription history (MAPs), review of the available imaging, evaluation and examination of the patient, coordination of care with the medical staff and if applicable referring physicians, as well as creation of the medical record PQRS Narrative: Smoking Status Never smoker Hx Alcohol Use (MH) Yes Home Medications: Ambulatory Orders Levothyroxine Sodium [Levoxyl] 125 mcg PO DAILY 08/27/18 Liothyronine Sodium [Cytomel] 5 mcg PO BID 08/27/18 calcitrioL 0.5 mcg PO BID 08/27/18 Calcium Citrate/Vitamin D3 [Citracal + D Maximum Caplet] 6 tab PO DAILY 09/07/21 Aspirin [Aspirin EC] 500 mg PO BID 07/16/24 Baclofen 10 mg PO DAILY PRN 07/16/24 Lidocaine 5% Patch [Lidoderm] 1 patch TOPICAL DAILY PRN 07/16/24 DULoxetine HCL 20 mg PO DAILY 08/07/24 Pantoprazole [Protonix] 40 mg PO DAILY 08/07/24 Controlled Substance Measures - Controlled Substance Measures Is patient prescribed a controlled substance at discharge?: No
== END ==
LOC: PNWHC3 07:40
PROVIDERS: ATTEND Specialist
DX: M54.17 Radiculopathy, lumbosacral region (principal); M16.12 Unilateral primary osteoarthritis, left hip; M46.1 Sacroiliitis, not elsewhere classified; Z91.041 Radiographic dye allergy status; Z88.0 Allergy status to penicillin
CPT/HCPCS: 73502; 99212

== ENCOUNTER → 2024-10-11 | Outpatient (CLI) | payer BC ==
[2024-10-11 08:16] LABS: INR 0.9 (<1.2); Partial Thromboplastin Time 22.4 sec (22.0-30.0)
[2024-10-11 10:13] LABS: HCT 42.1 % (37.2-46.3); HGB 13.9 g/dL (12.0-15.0); MCH 27.1 pg (27.0-32.0); MCV 82.1 FL (80.0-97.0); Mean Platelet Volume 9.9 FL (9.5-12.2); NRBC Per 100 WBC 0 X 10*3/uL (0.00-0.01); Platelet Count 340 X 10*3/uL (140-440); RBC 5.13 X 10*6/uL (4.10-5.20); RDW 12.7 % (11.5-14.5); WBC 8.43 X 10*3/uL (4.50-10.00)
[2024-10-11 10:32] LABS: ALT 16 U/L (8-44); AST 18 U/L (13-35); Albumin 4.2 g/dL (3.8-4.9); Albumin/Globulin Ratio 1.83 Ratio (1.60-3.17); Alkaline Phosphatase 73 U/L (41-126); BUN/Creat Ratio 27.12 Ratio (12.00-20.00); Blood Urea Nitrogen 21.7 mg/dL (9.0-27.0); Calcium 8.9 mg/dL (8.7-10.3); Carbon Dioxide 22.3 mmol/L (21.6-31.8); Chloride 107 mmol/L (96-109); Globulin 2.3 g/dL (1.6-3.3); Glucose 106 mg/dL (70-110); Potassium 4.2 mmol/L (3.5-5.5); Sodium 141 mmol/L (135-145); Total Bilirubin 0.3 mg/dL (0.3-1.2); Total Protein 6.5 g/dL (6.2-8.2)
== END | disposition home or self-care (01) ==
LOC: LABPAT 06:58
PROVIDERS: ATTEND Orthopaedic Surgery
DX: Z01.812 Encounter for preprocedural laboratory examination (principal); Z22.322 Carrier or suspected carrier of Methicillin resistant Staphylococcus aureus; M16.12 Unilateral primary osteoarthritis, left hip
CPT/HCPCS: 80053; 85027; 85610; 85730; 86850; 86900; 86901; 87070

== ENCOUNTER 2024-10-21 07:09 | Day surgery (SDC) | payer BC ==
[~2024-10-21 07:09] MED LIST: TRANEXAMIC 1,000 MG/100ML-NACL 1,000 MG in SALINE 1 100ML.BAG IVPB PRN
[2024-10-21] MEDS ORDERED: fentaNYL (PF) 50 MCG/ML 2 ML AMP IVP PRN (07:19)
[2024-10-21] MEDS ORDERED: LIDOCAINE 1% (10MG/ML) FOR IV START INTRADERMA PRN (07:19)
[2024-10-21] MEDS ORDERED: HYDROmorphone 0.5 MG/0.5 ML SYRINGE IVP PRN ×3 (07:19→08:45)
[2024-10-21] MEDS: IV FLUID CONTINUATION 1,000 ML IV ONE (07:41)
[2024-10-21] MEDS: LACTATED RINGERS 1,000 ML IV SCH (07:43)
[2024-10-21] MEDS: ACETAMINOPHEN TAB 500 MG TAB PO PRN (07:57)
[2024-10-21] MEDS: GABAPENTIN 300 MG CAP PO PRN (07:57)
[2024-10-21] MEDS: MELOXICAM 7.5 MG TAB PO PRN (07:57)
[2024-10-21] MEDS: DEXAMETHASONE SOD PHOSPHATE 4 MG/ML 1 ML VIAL IV ONE (07:59)
[2024-10-21] MEDS: ONDANSETRON 4 MG/2 ML VIAL IVP ONE (07:59)
[2024-10-21] MEDS: MIDAZOLAM 2 MG/2 ML VIAL IV PRN (08:10)
--- NOTE | 2024-10-21 08:20 | P.ANPRN ---
Procedure Note - Anesthesia - Nerve Block Performed Left Dante Single Time Out Performed: Yes Date of Procedure: 10/21/24 Procedure Start Time: 08:10 Procedure Stop Time: 08:16 Location of Patient: PreOp Indication: Acute Post-Operative Pain, Requested by Surgeon Sedation Type: Sedate with meaningful contact maintained Preparation: Sterile Prep Position: Supine Needle Types: Pajunk Needle Gauge: 21 Ultrasound used to visualize needle placement: Yes Ultrasound used to observe medication spread: Yes Injectate: 0.5% Ropivacaine (see comment for volume) (30 ml + 4 mg Dexamethas one) Blood Aspirated: No Pain Paresthesia on Injection Noted: No Resistance on Injection: Normal Image Stored and Saved: Yes Events: Uneventful and Well Tolerated
[2024-10-21] MEDS ORDERED: HYDROmorphone 1 MG/ML 1 ML SYRINGE IVP PRN (08:45)
[2024-10-21] MEDS ORDERED: MAGNESIUM HYDROXIDE 2,400 MG/30 ML CUP PO PRN (08:45)
[2024-10-21] MEDS ORDERED: ONDANSETRON 4 MG/2 ML VIAL IVP PRN (08:45)
[2024-10-21] MEDS ORDERED: NALOXONE 0.4 MG/ML 1 ML VIAL IV PRN (08:45)
[2024-10-21] MEDS: ROPIVACAINE 5 MG/ML 30 ML VIAL MISCELLANE ONE ×2 (08:57→10:04)
[2024-10-21] MEDS ORDERED: fentaNYL (PF) 50 MCG/ML 2 ML AMP ONE (09:02)
[2024-10-21] MEDS ORDERED: ROPIVACAINE 5 MG/ML 30 ML VIAL ONE (09:02)
[2024-10-21] MEDS: ceFAZolin 1,000 MG in SODIUM CHLORIDE 0.9% 1,000 ML IRRIGATION ONE (09:02)
[2024-10-21] MEDS ORDERED: MIDAZOLAM 2 MG/2 ML VIAL ONE (09:02)
[2024-10-21] MEDS ORDERED: TRANEXAMIC 1,000 MG/100ML-NACL PREMIX BAG ONE (09:02)
[2024-10-21] MEDS: ceFAZolin 2 GM in DEXTROSE 5% IN WATER 50 ML IVPB PRN (09:02)
[2024-10-21] MEDS ORDERED: DEXAMETHASONE SOD PHOSPHATE 4 MG/ML 1 ML VIAL ONE (09:02)
[2024-10-21] MEDS ORDERED: PROPOFOL 10 MG/ML 20 ML VIAL IV ONE (09:02)
--- NOTE | 2024-10-21 10:11 | P.OP ---
Date of Procedure: 10/21/24 Preoperative Diagnosis: Severe osteoarthritis left hip Postoperative Diagnosis: Severe osteoarthritis left hip Procedure(s) Performed: Left total hip arthroplasty with a direct anterior approach Implants: [employer] Polarstem standard size 2 with a collar [employer] R3, 3 hole hemispherical acetabular shell, 52 mm [employer] Reflection 6.5 mm cancellus screws, 20 mm, 25 mm [employer] R3, XLPE 20 acetabular liner [employer] Oxinium femoral head 36 mm, +0 All components were press-fit. The articulation is Oxinium on polyethylene. Anesthesia: spinal Surgeon: Forest Aguilar Director Of Physical Therapy #1: Gisella Marr Estimated Blood Loss (ml): 500 Pathology: none sent Condition: stable Disposition: PACU Indications for Procedure: After failure of conservative treatment we discussed the surgical and non surgical treatment options at length. Patient wishes to proceed with a total hip arthroplasty with a direct anterior approach. Complications specific to this procedure were discussed at length, including but not limited to infection, leg length discrepancy, dislocation, nerve injury, and fracture. Covid-19 was also discussed at length with the patient, and they are aware of the current policies and procedures. The patient was given the option of delaying surgery, but they elect to proceed knowing these risks. Patient is aware of all these complications and informed consent was obtained Operative Findings: The operative findings are consistent with severe osteoarthritis the left hip Description of Procedure: The patient was seen and evaluated in the preoperative area and the consent was reviewed. The operative site was marked with a skin marker. The patient verified the procedure and operative site. A JUNIOR block was placed by anesthesia in the preoperative area. The patient was then brought to the operating room and given preoperative antibiotics intravenously. 1 g of Tranexamic acid was also given intravenously. A spinal anesthetic was administered by the anesthesia department. The patient was then placed on the [place] table with the bony prominences well-padded. The hip area was then prepped with a ChloraPrep solution and draped in the usual sterile fashion. A universal timeout was then performed, which confirmed the patient's name, surgical site, ALLERGIES, and procedure being performed on the consent. Next the incision site was located at 1 cm distal and 4 cm lateral to the anterior superior iliac spine. The skin and subcutaneous tissues were sharply incised. Incision was carefully dissected down to the fascia overlying the tensor fascia bon muscle. This fascia was then incised in line with the muscle fibers. Care was taken to stay laterally in order to avoid injuring the lateral femoral cutaneous nerve. Next, using blunt finger dissection, the tensor fascia bon muscle was dissected off its investing fascia. The muscle was then carefully retracted laterally with a cobra retractor over the lateral neck of the femur. Next, the circumflex vessels were identified and cauterized using the Aquamantis device. The anterior hip capsule was then exposed. The capsule was then opened and an inverted T fashion. The retractors were then placed intracapsularly. The retractors were maintained intracapsular throughout the procedure. The proximal femur was then visualized. Fluoroscopic x-rays were then taken in order to evaluate the preoperative leg lengths. A small amount of traction was placed on the leg. The femoral neck was then osteotomized at the appropriate level above the lesser trochanter. A small wedge of bone was then removed from the remaining femoral head. Next, using a corkscrew the femoral head was removed from the acetabulum. On gross visual inspection, the femoral head had complete loss of articular cartilage and multiple periarticular osteophytes. The femoral head was then measured. Attention was then turned to the acetabulum. The acetabulum was exposed and any remaining labrum was excised. Sequential reaming of the acetabulum was performed using fluoroscopic guidance until there was a good bed of bleeding cancellus bone. When the appropriate size was reached, a trial was then placed. The position and fit of the trial was checked with fluoroscopy. The trial was then removed. Then, using fluoroscopic guidance, the final implant was impacted at 20 of anteversion and 40 of abduction, and fully seated in the acetabulum. 2 screws were then placed in the acetabulum. Again fluoroscopy was used to check position of the screws. Next, the liner was then impacted, with a 20 elevated liner located in the anterior superior quadrant. Component locking was confirmed. Attention was then directed to the femur. With the aid of the [place] table, the femur was externally rotated to approximately 130, extended, and adducted under the opposite leg. A side hook was then placed under the proximal femur, and the side hook elevator was used to elevate the proximal femur while releasing the capsule. Retractors were then placed. A capsular release was performed, as well as a release of the conjoined tendon, which afforded excellent vis ualization of the proximal femur. Next, a box osteotome was used to lateralize the proximal femur. A hand baseball sewer was then used to locate the femoral canal. Sequential broaching was then performed with appropriate size which afforded excellent fixation in the proximal femur. A trial was then placed with appropriate head and neck, and the hip was gently reduced with the aid of the [place] table. Fluoroscopy was then used to check position of the components, as well as to evaluate the leg lengths and offset. The leg lengths and offset were measured as closely as possible to ensure stability of the hip. The hip was then gently dislocated and the trials were then removed. Final implants were then impacted and the hip was again reduced. Final fluoroscopic x-rays confirmed that the components were in anatomic position. The leg lengths and offset were measured and were found to coincide with the trial measurements. The hip was also taken through range of motion, and found to be stable. The hip was then copiously irrigated with antibiotic solution with pulsatile lavage. The hip was then irrigated with Irrisept solution. The soft tissues were then injected with a ropivacaine solution. A second dose of 1 g of Tranexamic acid was also given intravenously. The fascia was then closed with 2-0 strata fix suture. The subcutaneous tissue was closed with 3-0 Vicryl. The subcuticular tissue was closed with 3-0 moncryl suture. The skin was then closed with Exofin skin glue. After the glue and dried, and Optifoam silver impregnated dressing was applied. The patient was then transferred to the recovery room in stable condition. The secretary administrative assistant YAS Ireland was required due to the complexity of surgery, and the need for skilled surgical dressing maker for positioning, draping, exposure, retraction, and closure of the wound.
--- NOTE | 2024-10-21 10:31 | FL ---
EXAMINATION TYPE: FL guidance operating room DATE OF EXAM: 10/21/2024 FLUOROSCOPY Lt Hip-Ant 51sec fluoro time 3.7399 [facility], , 10/21/2024 10:29 AM
--- NOTE | 2024-10-21 11:12 | XR ---
EXAMINATION TYPE: XR Hip Limited LT DATE OF EXAM: 10/21/2024 10:19 AM COMPARISON: Pre Operative Images if available both CT/MRI or plain film CLINICAL INDICATION: Female, 54 years old with history of Left Hip-Ant; TECHNIQUE: XR Hip Limited LT, multiple fluoroscopic images provided for procedure. DAP: 3.7399 DAP mGym2 Gycm2 uGym2 cGycm2 or equivalent. FINDINGS: Fluoroscopic images during internal fixation/arthroplasty demonstrate hardware in appropriate positio n. Hardware appears intact. No immediate complication identified. IMPRESSION: 1. No evidence for intraoperative complication. 2. Please see the operative/procedural note for further details. [facility], , 10/21/2024 11:10 AM
--- NOTE | 2024-10-21 11:23 | XR ---
EXAMINATION TYPE: XR Hip Limited LT DATE OF EXAM: 10/21/2024 11:04 AM COMPARISON: 08/28/2024. CLINICAL INDICATION: Female, 54 years old with history of Status post hip surgery, assess surgical al ignment; PHH, pain TECHNIQUE: XR Hip Limited LT; Frontal view FINDINGS: Post arthroplasty changes, hardware is intact, alignment is appropriate. No evidence of fra cture. Postoperative changes of the soft tissues with subcutaneous gas. No evidence of any acute osse ous pathology or joint dislocation. IMPRESSION: Hip arthroplasty with hardware intact and in appropriate alignment. No acute fracture. [facility], , 10/21/2024 11:20 AM
[2024-10-21] MEDS: ASPIRIN 325 MG TAB PO SCH (13:30)
[2024-10-21] MEDS: SODIUM CHLORIDE 0.9% 1,000 ML IV SCH (13:30)
[2024-10-21] MEDS: HYDROcodone/APAP 7.5-325MG 1 EACH TAB PO PRN (15:15)
[2024-10-21] MEDS: LEVOTHYROXINE 125 MCG TAB PO SCH (15:15)
[2024-10-21] MEDS: ceFAZolin 2 GM in DEXTROSE 5% IN WATER 50 ML IVPB SCH (15:15)
--- NOTE | 2024-10-21 18:54 | P.CONS ---
History of Present Illness - Reason for Consult Consult date: 10/21/24 Medical management - Chief Complaint Status post left total hip arthroplasty - History of Present Illness Patient is a 54-year-old female with a past medical history of thyroid cancer status post thyroidectomy, history of melanoma, GERD, GAINES, hypothyroidism and osteoarthritis was admitted to the hospital for elective left total hip arthroplasty. Patient tolerated the procedure very well. Currently resting in the bed. Awake alert and oriented x 3. No complaints of chest pain or shortness of breath. Left hip pain is controlled with medications. No fever no chills. No palpitations. No cough or sputum production. Laboratory data is not available at this time. Review of Systems Constitutional: Patient denies any fever or chills . No generalized weakness or weight loss. Abdomen: Patient denied nausea vomiting and diarrhea and abdominal pain. Cardiovascular: Patient denies any chest pain or short of breath no palpitations. Respiratory: patient denied any cough or sputum production. No shortness of breath Neurologic: Patient denied any numbness or tingling. no headache. Musculoskeletal: Patient denies any complaints of joint swelling or deformity. Skin: Negative Psychiatric: Negative Endocrine: No heat or cold intolerance. No recent weight gain. Genitourinary: No dysuria or hematuria. All other 14 point ROS negative except the above Past Medical History Past Medical History: Cancer, Chest Pain / Angina, Eye Disorder, GERD/Reflux, Liver Disease, Osteoarthritis (OA), Pneumonia, Thyroid Disorder Additional Past Medical History / Comment(s): hx melanoma, thyroid ca, weak eye muscle - improved after surgery. back pain. GAINES. History of Any Multi-Drug Resistant Organisms: None Reported Past Surgical History: Adenoidectomy, Cholecystectomy, Hysterectomy, Orthopedic Surgery, Tonsillectomy Additional Past Surgical History / Comment(s): sebaceous cyst lt labia, 3 d&c's, wisdom teeth extracted, melanoma removed right arm, laparoscopy 1995, benign lump removed from leg, plantar fasia release inder feet, 3 eye sx for crossed eyes, thyroidectomy Past Anesthesia/Blood Transfusion Reactions: Previous Problems w/ Anesthesia, Family History of Problems w/ Anesthesia, Motion Sickness, Postoperative Nausea & Vomiting (PONV) Additional Past Anesthesia/Blood Transfusion Reaction / Comm: clausterphobia; after longer surgeries- can get violent when coming out of anesthesia; mother PONV. Past Psychological History: No Psychological Hx Reported Smoking Status: Never smoker Past Alcohol Use History: Rare Past Drug Use History: None Reported - Past Family History Mother Family Medical History: Osteoarthritis (OA) Additional Family Medical History / Comment(s): osteoporosis Father Family Medical History: Hypertension Additional Family Medical History / Comment(s): crohns, colitis 06-12-21 Medications and Allergies Home Medications Medication Instructions Recorded Confirmed Type Levothyroxine Sodium [Levoxyl] 125 mcg PO DAILY 08/27/18 10/21/24 History Liothyronine Sodium [Cytomel] 5 mcg PO BID 08/27/18 10/21/24 History calcitrioL [Rocaltrol (GEQ)] 0.5 mcg PO BID 08/27/18 10/21/24 History Calcium Citrate/Vitamin D3 3 tab PO DAILY 09/07/21 10/21/24 History [Citracal + D Maximum Caplet] Aspirin [Aspirin EC] 500 mg PO BID 07/16/24 10/21/24 History Baclofen 10 mg PO DAILY PRN 07/16/24 10/21/24 History Lidocaine 5% Patch [Lidoderm] 1 patch TOPICAL DAILY PRN 07/16/24 10/21/24 History DULoxetine HCL 20 mg PO DAILY 08/07/24 10/21/24 History Pantoprazole [Protonix] 40 mg PO DAILY 08/07/24 10/21/24 History Aspirin 325 mg PO BID #60 tab 10/21/24 Rx HYDROcodone/APAP 7.5-325MG [[place] 1 - 2 tab PO Q6H PRN #32 tab 10/21/24 Rx 7.5-325] Sennosides [Senokot] 2 tab PO DAILY PRN #60 tablet 10/21/24 Rx Allergies Allergy/AdvReac Type Severity Reaction Status Date / Time adhesive Allergy Rash/Hives Verified 10/21/24 07:20 Iodinated Contrast Media Allergy Dyspnea Verified 10/21/24 07:20 [Iodinated Contrast- Oral and IV Dye] Penicillins Allergy Anaphylaxis Verified 10/21/24 07:20 Physical Exam Vitals: Vital Signs Temp Pulse Pulse Resp BP BP Pulse Ox 10/21/24 12:45 62 14 115/56 95 10/21/24 12:31 61 17 119/59 95 10/21/24 12:15 58 L 17 126/60 95 10/21/24 11:46 54 L 16 125/60 99 10/21/24 11:31 55 L 16 129/61 99 10/21/24 11:15 55 L 16 130/60 99 10/21/24 11:00 56 L 16 135/58 99 10/21/24 10:45 53 L 16 129/62 100 10/21/24 10:30 97 F L 77 16 132/61 100 10/21/24 08:25 62 16 139/84 100 10/21/24 07:27 96.4 F L 86 14 150/81 97 Intake and Output 10/20/24 10/21/24 10/21/24 22:59 06:59 14:59 Intake Total 801 Output Total 500 Balance 301 Intake: IV 801 Output: Estimated Blood Loss 500 Other: Weight 114.6 kg PHYSICAL EXAMINATION: Patient is lying in the bed comfortably, no acute distress, awake alert and oriented.. HEENT: Normocephalic. Neck is supple. Pupils reactive. Nostrils clear. Oral cavity is moist. Neck reveals no JVD, carotid bruits, or thyromegaly. CHEST EXAMINATION: Trachea is central. Symmetrical expansion. Lung reid clear to auscultation and percussion. CARDIAC: Normal S1, S2 with no gallops. No murmurs ABDOMEN: Soft. Bowel sounds normal. No organomegaly. No abdominal bruits. Extremities: reveal no edema. No clubbing or cyanosis Neurologically awake, alert, oriented x3 with well-coordinated movements. No focal deficits noted Skin: No rash or skin lesions. Psychiatric: Coperative. Nonsuicidal Musculoskeletal: No joint swelling or deformity. Left hip surgical site intact. Assessment and Plan Assessment: Status post left total hip arthroplasty postoperative day 0 History of thyroid cancer status post thyroidectomy and is currently on supplementation. GERD Nonalcoholic steatohepatitis Chronic back pain Osteoarthritis Morbid obesity with BMI 40.2 DVT prophylaxis as per primary team Plan: Patient will be continued on pain management, bowel regimen and encourage incentive spirometry. PT OT was consulted. Continue with thyroid supplementation and follow-up CBC and BMP tomorrow. Further recommendations based on the clinical course. Thank you kindly for your consult.
[2024-10-21] MEDS: SENNOSIDES-DOCUSATE SODIUM 1 EACH TAB PO SCH (21:33)
[2024-10-21] MEDS: LIOTHYRONINE SODIUM 5 MCG TAB PO SCH (21:33)
[2024-10-22] MEDS: HYDROcodone/APAP 7.5-325MG 1 EACH TAB PO PRN (02:51)
[2024-10-22] MEDS: PANTOPRAZOLE 40 MG TABLET PO SCH (06:43)
--- NOTE | 2024-10-22 07:18 | P.DS ---
Providers Expected date of discharge: 10/22/24 Attending physician: Forest Aguilar Consults: 10/21/24 08:45 Consult Physician Routine Consulting Provider: Da Ho Consult Reason/Comments: medical management Do you want consulting provider notified?: Yes Primary care physician: Bernardo Fields - Discharge Diagnosis(es) (1) Osteoarthritis of left hip Current Visit: Yes Status: Acute (2) S/P total hip arthroplasty Current Visit: Yes Status: Acute Hospital Course: This is a 54-year-old female with known history of degenerative arthritis of the left hip. The patient presented for evaluation as an outpatient. After discussion and consideration patient elects to proceed with total hip arthroplasty. The patient is seen preoperatively by Dr. Aguilar and medically cleared for surgery by their primary care physician. Patient is admitted to [facility] on 10/21/2024 for total hip arthroplasty. The procedure is performed without complication or sequelae. The patient is doing well postoperatively. Labs and vital signs are stable on day of discharge. On day of discharge patient's hip incision is healing well. There is minimal erythema. There is no drainage noted at this time. There is minimal soft tissue swelling to the hip and thigh. Patient has full foot and ankle motion without difficulty or pain. Calf is soft and nontender to palpation. Neurovascular status to the left lower extremity is intact. Patient is discharged home in good condition. Please see med rec for accurate list of home medications. Plan - Discharge Summary Discharge Rx Participant: Yes New Discharge Prescriptions: New Aspirin 325 mg PO BID #60 tab Sennosides [Senokot] 2 tab PO DAILY PRN #60 tablet PRN Reason: Constipation HYDROcodone/APAP 7.5-325MG [Fosters 7.5-325] 1 - 2 tab PO Q6H PRN #32 tab PRN Reason: Pain No Action calcitrioL [Rocaltrol (GEQ)] 0.5 mcg PO BID Liothyronine Sodium [Cytomel] 5 mcg PO BID Levothyroxine Sodium [Levoxyl] 125 mcg PO DAILY Baclofen 10 mg PO DAILY PRN PRN Reason: Pain DULoxetine HCL 20 mg PO DAILY Calcium Citrate/Vitamin D3 [Citracal + D Maximum Caplet] 3 tab PO DAILY Lidocaine 5% Patch [Lidoderm] 1 patch TOPICAL DAILY PRN PRN Reason: Pain Aspirin [Aspirin EC] 500 mg PO BID Pantoprazole [Protonix] 40 mg PO DAILY Discharge Medication List Levothyroxine Sodium [Levoxyl] 125 mcg PO DAILY 08/27/18 [History] Liothyronine Sodium [Cytomel] 5 mcg PO BID 08/27/18 [History] calcitrioL [Rocaltrol (GEQ)] 0.5 mcg PO BID 08/27/18 [History] Calcium Citrate/Vitamin D3 [Citracal + D Maximum Caplet] 3 tab PO DAILY 09/07/21 [History] Aspirin [Aspirin EC] 500 mg PO BID 07/16/24 [History] Baclofen 10 mg PO DAILY PRN 07/16/24 [History] Lidocaine 5% Patch [Lidoderm] 1 patch TOPICAL DAILY PRN 07/16/24 [History] DULoxetine HCL 20 mg PO DAILY 08/07/24 [History] Pantoprazole [Protonix] 40 mg PO DAILY 08/07/24 [History] Aspirin 325 mg PO BID #60 tab 10/21/24 [Rx] HYDROcodone/APAP 7.5-325MG [Fosters 7.5-325] 1 - 2 tab PO Q6H PRN #32 tab 10/21/24 [Rx] Sennosides [Senokot] 2 tab PO DAILY PRN #60 tablet 10/21/24 [Rx] Follow up Appointment(s)/Referral(s): Forest Aguilar DO [Doctor of Osteopathic Medicine] - 2 Weeks Activity/Diet/Wound Care/Special Instructions: Weightbearing as tolerated with walker. Leave dressing intact. Dressing may be removed by home care nurse or by patient in 7 days. Then change dressing twice daily until follow up. May shower with initial dressing intact and after removal. If dressing become saturated, please remove. Please take aspirin 325mg twice daily for 30 days to prevent blood clots. Recommend use of compression stockings daily until follow up to help prevent swelling and blood clots. May remove at night before sleeping. Please follow[facility]up with [facility] 2 weeks and call with any questions or concerns, . Discharge Disposition: HOME WITH HOME HEALTH SERVICES
[2024-10-22 08:22] LABS: Basophils # (A) 0.03 X 10*3/uL (0.00-0.10); Basophils % (A) 0.3 %; Eosinophils # (A) 0.01 X 10*3/uL (0.04-0.35); Eosinophils % (A) 0.1 %; HCT 35.8 % (37.2-46.3); HGB 11.6 g/dL (12.0-15.0); Lymphocytes # (A) 1.44 X 10*3/uL (0.90-5.00); Lymphocytes % (A) 13.2 %; MCH 27.2 pg (27.0-32.0); MCHC 32.4 g/dL (32.0-37.0); MCV 83.8 FL (80.0-97.0); Mean Platelet Volume 10.1 FL (9.5-12.2); Monocytes # (A) 0.62 X 10*3/uL (0.20-1.00); Monocytes % (A) 5.7 %; NRBC Per 100 WBC 0 X 10*3/uL (0.00-0.01); Neutrophils # (A) 8.79 X 10*3/uL (1.80-7.70); Neutrophils % (A) 80.2 %; Platelet Count 293 X 10*3/uL (140-440); RBC 4.27 X 10*6/uL (4.10-5.20); RDW 12.9 % (11.5-14.5); WBC 10.94 X 10*3/uL (4.50-10.00)
[2024-10-22 08:24] VITALS: PULSE 68; RESP 19
[2024-10-22 08:38] LABS: BUN/Creat Ratio 16.12 Ratio (12.00-20.00); Blood Urea Nitrogen 12.9 mg/dL (9.0-27.0); Calcium 7.7 mg/dL (8.7-10.3); Carbon Dioxide 24.7 mmol/L (21.6-31.8); Chloride 104 mmol/L (96-109); Glucose 121 mg/dL (70-110); Sodium 139 mmol/L (135-145)
[2024-10-22] MEDS: CALCIUM CARB-VIT D 500 MG-5 MCG TAB PO SCH (08:44)
[2024-10-22] MEDS: DULoxetine HCL 20 MG CAPSULE.DR PO SCH (08:46)
[2024-10-22 11:12] VITALS: BP 101/64; TEMP 98
== END 2024-10-22 11:53 | disposition home health service (06) ==
LOC: OR 07:09 → 4SSUR 12:56 → OR 10-22 11:53
PROVIDERS: ATTEND Orthopaedic Surgery
DX: M16.12 Unilateral primary osteoarthritis, left hip (principal); K75.81 Nonalcoholic steatohepatitis (NASH); K21.9 Gastro-esophageal reflux disease without esophagitis; G89.18 Other acute postprocedural pain; E89.0 Postprocedural hypothyroidism; E66.01 Morbid (severe) obesity due to excess calories; G89.29 Other chronic pain; Z68.41 Body mass index [BMI] 40.0-44.9, adult; Z79.82 Long term (current) use of aspirin; Z79.890 Hormone replacement therapy; Z85.820 Personal history of malignant melanoma of skin; Z85.850 Personal history of malignant neoplasm of thyroid; Z88.0 Allergy status to penicillin; Z90.710 Acquired absence of both cervix and uterus; Z90.49 Acquired absence of other specified parts of digestive tract; Z91.041 Radiographic dye allergy status
CPT/HCPCS: 97161; 97166; 64473; 80048; 85025; 73501; 27130; C1776; J2250; J1100; J0690 ×2; J2405; J2795